=== PATIENT | male | born 1995 | race Caucasian/White ===

== ENCOUNTER 2017-09-24 16:12 | Observation (INO) | payer OTHER ==
[~2017-09-24] VITALS: Ht 193 cm; Wt 122.9 kg
[2017-09-24] MEDS ORDERED: fentaNYL CITR 100 MCG/2 ML AMP IVP ONE (16:40)
--- NOTE | 2017-09-24 16:40 | ER Report ---
History and Physical Time Seen By MD: 16:20 Hx. of Stated Complaint: referal from [facility] for appendicitis HPI/ROS CHIEF COMPLAINT: appendicitis HISTORY OF PRESENT ILLNESS: Pt here for positive appendicitis on Ct. Pt states that he felt okay last night but woke up this am with rlq abd pain. Pain is worse with movement, cough or laughter. PT states pain is constant all day so went to [facility]. The Doctor at [facility] sent him for a CT of abdomen this afternoon. The ct is postiive for appendicitis. PT denies nausea, vomiting or diarrhea. Did have bm today and it was nl but increased his abd pain. no fevers. Last ate this am around 830 REVIEW OF SYSTEMS: Constitutional: No fever, no chills. Eyes: No discharge. ENT: No sore throat. Cardiovascular: No chest pain, no palpitations. Respiratory: No cough, no shortness of breath. Gastrointestinal: + abdominal pain, no vomiting. Genitourinary: No hematuria. Musculoskeletal: No back pain. Skin: No rashes. Neurological: No headache. Allergies: Coded Allergies: No Known Drug Allergies (Unverified , 09/24/17) Home Meds No Active Prescriptions or Reported Meds Past Medical/Surgical History PT denies PMHx or PShx Reviewed Nurses Notes: Yes Smoking Status: Never Smoker Hx Substance Use Disorder: No Hx Alcohol Use: Yes (occational) Constitutional Vital Sign - Last 24 Hours 09/24/17 16:18 Temp 98.8 Pulse 84 Resp 12 B/P (MAP) 150/86 Pulse Ox 94 O2 Delivery Room Air Physical Exam General Appearance: The patient is alert, has no immediate need for airway protection and no signs of toxicity. Eyes: Pupils equal and round no pallor or injection, EOMI ENT: no pharyngeal erythema or exudates, Mucous membranes are moist Respiratory: There are no retractions, lungs are clear to auscultation. Cardiovascular: Regular rate and rhythm. pulses are equal and symmetrical Gastrointestinal: Abdomen diffusely tender but gratest in RLQ, decreased bowel sounds, +guarding, + rigidity +rebound Neurological: Cranial nerves II-XII grossly intact, no sensory or motor loss Skin: Warm and dry, no rashes. Musculoskeletal: Neck is supple non tender, no vertebral tenderness Extremities are nontender, non swollen and have full range of motion. DIFFERENTIAL DIAGNOSIS: After history and physical exam differential diagnosis was considered for acute appendicitis Medical Decision Making Data Points Laboratory Hematology Test 09/24/17 16:25 Chemistry Test 09/24/17 16:25 Coagulation Test 09/24/17 16:25 ED Course/Re-evaluation Clinical Indication for ER IV: IV Access ED Course IV started. labs sent off. 09/24/2017 4:43:[address] Banuelos coming in to see pt Decision to Disposition Date: Sep 24, 2017 Decision to Disposition Time: 16:43 Depart Departure Latest Vital Signs Vital Signs Date Time Temp Pulse Resp B/P (MAP) Pulse Ox O2 Delivery O2 Flow Rate FiO2 09/24/17 16:18 98.8 84 12 150/86 94 Room Air Impression: Primary Impression: Acute appendicitis Condition: Condition Unchanged Disposition: ADMIT FROM ER TO OR New Scripts No Active Prescriptions or Reported Meds Problem Qualifiers Primary Impression: Acute appendicitis Acute appendicitis type: with localized peritonitis Qualified Codes: K35.3 - Acute appendicitis with localized peritonitis ALYSSIA SILVERMAN DO Sep 24, 2017 16:40
[2017-09-24 16:42] LABS: INR 0.93
[2017-09-24 16:45] LABS: PLATELET COUNT, AUTOMATED 288 K/uL (150-450)
[2017-09-24] MEDS ORDERED: NORMOSOL R SOLN(*) 1000 ML BAG 1,000 ML IV ONE ×2 (17:15→23:03)
[2017-09-24] MEDS ORDERED: FAMOTIDINE(*) 20MG/50ML PREMIX 50 ML IVPB ONE (17:15)
[2017-09-24] MEDS ORDERED: cefOXitin/DEX(*) 2GM/50ML PREM 50 ML IVPB ONE (17:15)
--- NOTE | 2017-09-24 17:23 | Post Operative Progress Note ---
Post Operative Progress Note Date: Sep 24, 2017 Surgeon: tierra Anesthesia: dr chan Pre-Op Diagnosis: appendicitis Post-Op Diagnosis: same Procedure(s): SUSAN Livingston MD Sep 24, 2017 17:23
--- NOTE | 2017-09-24 17:23 | General Surgery 1 H&P ---
History of Present Illness Chief Complaint right lower quadrant pain History of Present Illness 22 yo healthy male presents with right lower quadrant pain since this am. it has been steady and persistent. no fever no nausea or vomiting no change in bms no urinary complaints. he is anorexic. seen at [facility] and ct obtained which revealed appendicitis History Other Past Surgeries: none Home Meds No Active Prescriptions or Reported Meds Allergies: Coded Allergies: No Known Drug Allergies (Unverified , 09/24/17) Review of Systems All Systems Reviewed/Normal: Yes Exam Vital Signs Date Time Temp Pulse Resp B/P (MAP) Pulse Ox O2 Delivery O2 Flow Rate FiO2 09/24/17 16:18 98.8 84 12 150/86 94 Room Air General Appearance: Alert, Awake, No Acute Distress GI: Other (tender with guarding in the right lower quadrant) Medical Decision Making Data Points Result Diagram: 09/24/17 1625 09/24/17 1625 Assessment and Plan Problems: (1) Acute appendicitis Status: Acute Assessment & Plan: will proceed with a laparoscopic appendectomy Copies to: SUSAN CRAIN MD Venous Thromboembolism Antithrombotics Is Pt On Any Antithrombotics?: No Problem Qualifiers (1) Acute appendicitis: Acute appendicitis type: with localized peritonitis Qualified Codes: K35.3 - Acute appendicitis with localized peritonitis SUSAN CRAIN MD Sep 24, 2017 17:22
[2017-09-24] MEDS ORDERED: HYDR-4309 PO (17:24)
[2017-09-24] MEDS ORDERED: KET10 PO (17:24)
[2017-09-24] MEDS ORDERED: NORMOSOL R SOLN(*) 1000 ML BAG 1,000 ML IV PRN (17:26)
--- NOTE | 2017-09-24 17:26 | Short(Outpt) Discharge Summary ---
Discharge Summary Reason for Hosp/Final Diag: (1) Acute appendicitis Status: Acute Hospital Course & Plan: will proceed with a laparoscopic appendectomy Departure Discharge to: Home Discharge Instructions Home Meds Active Scripts Hydrocodone Bit/Acetaminophen (NORCO 5-325 TABLET) 1 Each Tablet, 1 EACH PO Q4H Y for PAIN, #30 TAB Prov:SUSAN CRAIN MD 09/24/17 Ketorolac Tromethamine (KETOROLAC TROMETHAMINE) 10 Mg Tab, 10 MG PO Q6H, #16 TAB Prov:SUSAN CRAIN MD 09/24/17 Diet: Regular Activity: As Tolerated Special Instructions: ice to incisions for 24 hours remove bandage and shower to see me in one week, call [phone] for apt Problem Qualifiers (1) Acute appendicitis: Acute appendicitis type: with localized peritonitis Qualified Codes: K35.3 - Acute appendicitis with localized peritonitis SUSAN CRAIN MD Sep 24, 2017 17:25
[2017-09-24] MEDS ORDERED: ONDANSETRON 4 MG/2 ML VIAL IVP PRN (17:30)
[2017-09-24] MEDS ORDERED: MIDAZOLAM 2 MG/2 ML VIAL ONE (19:32)
[2017-09-24] MEDS ORDERED: DEXAMETHASONE SOD PHOS 10MG/ML ONE (19:38)
[2017-09-24] MEDS ORDERED: PROPOFOL EMUL(*) 10MG/ML 20 ML 40 ML ONE (19:38)
[2017-09-24] MEDS ORDERED: ONDANSETRON 4 MG/2 ML VIAL ONE (19:38)
[2017-09-24] MEDS ORDERED: SUCCINYLCHOL CHL 200MG/10ML VL ONE (19:38)
[2017-09-24] MEDS ORDERED: LIDOCAINE MPF 1% 5 ML VIAL ONE (19:38)
[2017-09-24] MEDS ORDERED: ROPIVACAINE 0.2% 20 ML VIAL ONE (19:46)
[2017-09-24] MEDS ORDERED: KETOROLAC 30 MG/ML VIAL ONE (20:06)
[2017-09-24] MEDS ORDERED: ROCURONIUM BROM 10 MG/ML 10 ML ONE (20:07)
[2017-09-24] MEDS ORDERED: SUGAMMADEX SOD 500 MG/5 ML SDV ONE (20:17)
[2017-09-24 21:31] VITALS: BP 139/79
[2017-09-24 21:48] VITALS: BP 139/76
[2017-09-24] MEDS ORDERED: APAP/HYDROCODONE 325/5 TAB PO PRN (22:10)
[2017-09-24 22:41] VITALS: BP 126/68
[2017-09-24 22:45] VITALS: BP 129/72
[2017-09-24 23:00] VITALS: BP 136/75
[2017-09-24 23:15] VITALS: BP 121/85
[2017-09-25] VITALS (8 sets, daily range): BP systolic 117–149; BP diastolic 60–78
[2017-09-25] MEDS ORDERED: KETOROLAC 30 MG/ML VIAL IVP SCH ×2 (02:00→08:00)
--- NOTE | 2017-09-25 07:55 | General Surgery Progress Note ---
Subjective Progress Notes Subjective no complaints, slept well. tolerating po diet. Physical Exam Vital Signs Date Time Temp Pulse Resp B/P (MAP) Pulse Ox O2 Delivery O2 Flow Rate FiO2 09/25/17 07:00 66 16 92 Room Air 09/25/17 06:03 117/63 (81) 09/25/17 05:00 1.0 09/24/17 21:31 98.8 General Appearance: Alert, Awake, No Acute Distress Result Diagram: 09/24/17 1625 09/24/17 1625 Assessment and Plan Problems: (1) Acute appendicitis Status: Acute Assessment & Plan: will proceed with a laparoscopic appendectomy 09/25/17 doing well home today Exam Sepsis Risk: No Definite Risk Problem Qualifiers (1) Acute appendicitis: Acute appendicitis type: with localized peritonitis Qualified Codes: K35.3 - Acute appendicitis with localized peritonitis SUSAN CRAIN MD Sep 25, 2017 07:55
--- NOTE | 2017-09-25 23:18 | OPERATIVE REPORT 1 ---
EVENT DATE: September 24, 2017 SURGEON: Ahsan Banuelos MD ANESTHESIOLOGIST: Oskar Kelley MD ANESTHESIA: General. PREOPERATIVE DIAGNOSIS Acute appendicitis. POSTOPERATIVE DIAGNOSIS Acute appendicitis. PROCEDURE PERFORMED Laparoscopic appendectomy. DESCRIPTION OF PROCEDURE Patient was placed in supine position and given general anesthetic. His abdomen was prepped and draped in a sterile fashion. Skin was anesthetized with 0.2% ropivacaine. A small incision was made above the umbilicus. A Veress needle was inserted. The abdomen was insufflated with CO2. A 5 mm port was placed under direct vision. We then placed a 5 mm in the left lower quadrant and a 10 mm in the suprapubic region. We then placed patient Trendelenburg, rotated to the left, went to the right lower quadrant, identified the inflamed appendix. The mesoappendix was divided with the Harmonic scalpel. We did this to the appendiceal-cecal junction. We then placed an 0 chromic Endoloop there, placed 2 PDS Endoloops distal to this, cut between the two PDS Endoloops, placed it in an Endo Pouch, and removed it from the field. We inspected for bleeding. We had perfect hemostasis. Ports were removed under direct vision. No bleeding was noted. Skin was closed with interrupted 4-0 Maxon. Steri-Strips and Airstrip were placed. Patient tolerated the procedure well. No apparent complications. ROBSON
== END 2017-09-25 07:53 | disposition home or self-care (01) ==
LOC: ER 16:24 → PED 21:30
PROVIDERS: ADMIT Surgery; ATTEND Surgery
DX: K35.3 Acute appendicitis with localized peritonitis (principal)
CPT/HCPCS: 44970; 83690; 85025; 85610; 85730; 96365; 96375; 99285; G0378; J0330; J0694; J1100; J1885; J2001; J2250; J2405; J2704; J2795; J3010; J3490; 82040; 82247; 82310; 82374; 82435; 82565; 82947; 84075; 84132; 84155; 84295; 84450; 84460; 84520

== ENCOUNTER → 2017-09-24 | Outpatient (CLI) | payer OTHER ==
[~2017-09-24] MED LIST: APAP/HYDROCODONE 325/5 TAB PO PRN; HYDR-4309 PO; IOPAMIDOL 76% 75 ML INFUS BTL 75 ML ONE; KET10 PO; KETOROLAC 30 MG/ML VIAL IVP SCH; MIDAZOLAM 2 MG/2 ML VIAL IVP PRN; NORMOSOL R SOLN(*) 1000 ML BAG 1,000 ML IV PRN; ONDANSETRON 4 MG/2 ML VIAL IVP PRN; fentaNYL CITR 100 MCG/2 ML AMP ONE
--- NOTE | 2017-09-24 15:57 | RADIOLOGY IMAGING REPORT ---
FACILITY: [facility] PATIENT NAME: Carlos Au : 1995 MR: [id number] V: [id number] EXAM DATE: ORDERING PHYSICIAN: ARMANDO CATES TECHNOLOGIST[place] [facility] [place] : 1995 Visit/Account:[id number] Date of Sevice: 09/24/2017 ABDOMEN/PELVIS WITH CONTRAST HISTORY: Right lower quadrant pain TECHNIQUE: Following administration of IV contrast contiguous axial images acquired through the abdom en/pelvis. Coronal and sagittal reformatting also performed. Dose Lowering Technique One of the following dose optimization techniques was utilized in the performance of this exam: Autom ated exposure control; adjustment of the mA and/or kV according to the patient's size; or use of an i terative reconstruction technique. Specific details can be referenced in the facility's radiology C T exam operational policy. CONTRAST: 75 mL Isovue-370 COMPARISON: None. FINDINGS: Visualized lung bases: Negative. Hepatobiliary: Negative. Spleen: Accessory splenule Adrenals: Negative. Pancreas: Negative. Kidneys ureters or bladder: Negative. Genitalia: Negative. GI: The appendix is dilated at 11 mm, is fluid-filled with mild enhancement of the wall and mild inf lammatory changes seen in the periappendiceal fat. Findings are consistent with acute appendicitis. There is no evidence of appendiceal rupture or focal abscess. Vessels/spaces/nodes: There are small scattered mesenteric lymph nodes and shotty retroperitoneal ly mph nodes. Also noted is a 1.5 x 1.3 cm lymph node adjacent to the head the pancreas. Bones/soft tissues: Is a tiny umbilical hernia containing fat. There are mild spondylotic changes L 5-S1 Additional findings: None pertinent. IMPRESSION: Findings are consistent with acute appendicitis with no evidence of appendiceal rupture or focal absc ess Shotty mesenteric and retroperitoneal lymph nodes in addition to a 1.5 x 1.3 cm lymph node adjacent t o the head of the pancreas. These lymph nodes could simply be reactive however short-term interval f ollow-up recommended Results were called to ARMANDO CATES at 09/24/2017 3:51 PM. Report Dictated By: Cathleen Clark MD at 09/24/2017 3:44 PM Report E-Signed By: Cathleen Clark MD at 09/24/2017 3:53 PM WSN:CHRISTINE
--- NOTE | 2017-09-24 20:30 | Post Operative Progress Note ---
Post Operative Progress Note Date: Sep 24, 2017 Time: 20:29 Surgeon: tierra Anesthesia: dr chan Pre-Op Diagnosis: appendicitis Post-Op Diagnosis: same Procedure(s): SUSAN Livingston MD Sep 24, 2017 20:30
== END ==
LOC: CT 14:52
PROVIDERS: ATTEND Family Medicine
DX: K35.80 Unspecified acute appendicitis (principal); R59.0 Localized enlarged lymph nodes
CPT/HCPCS: 74177; J3010; Q9967; 88304